=== PATIENT | male | born 1955 | race Caucasian/White ===

== ENCOUNTER 2018-09-28 18:28 | Emergency (ER) | payer BC ==
[~2018-09-28] VITALS: Ht 190.5 cm; Wt 113.4 kg
[2018-09-28 19:12] VITALS: BP 156/80
[2018-09-28] MEDS ORDERED: PREDNISONE20 MG PO (19:16)
== END 2018-09-28 19:19 | disposition home or self-care (01) ==
LOC: FSED 18:28
DX: R21 Rash and other nonspecific skin eruption (principal); I10 Essential (primary) hypertension
CPT/HCPCS: 85025; 99283

== ENCOUNTER → 2021-05-02 | Outpatient (CLI) | payer BC ==
[~2021-05-02] MED LIST: IOPAMIDOL 370 MG/ML 200 ML INFUS..BTL INJ ONE; METOPROLOL TARTRATE INJ 1 MG/ML VIAL ONE; NITROGLYCERIN 0.4 MG SUBL ONE; PREDNISONE20 MG PO; SODIUM CHLORIDE 0.9% 100 ML ONE
== END ==
LOC: CT 08:05
PROVIDERS: ATTEND Internal Medicine
DX: R94.39 Abnormal result of other cardiovascular function study (principal)
CPT/HCPCS: 75574; J7050; Q9967